=== PATIENT | female | born 1970 | race Caucasian/White ===

== ENCOUNTER 2018-02-15 07:05 | Emergency (ER) | payer MEDICAID ==
[~2018-02-15] VITALS: Ht 152.4 cm; Wt 55.9 kg
[2018-02-15 07:06] VITALS: BP 115/83
[2018-02-15 07:46] LABS: MICROSCOPIC AUTO
[2018-02-15 07:53] LABS: CULTURE INDICATED? YES
[2018-02-15 08:45] LABS: ALBUMIN 4.2 g/dL (3.4-5.0); ANION GAP 6 mmol/L (5-15); CALCIUM 8.8 mg/dL (8.5-10.1); CHLORIDE 107 mmol/L (98-107); CREATININE 0.53 mg/dL (0.55-1.02)
[2018-02-15 09:49] LABS: BASOPHILS # (AUTO) 0.06 x10^3/uL (0-0.1); BASOPHILS % (AUTO) 1 % (0-1); EOSINOPHILS # (AUTO) 0.08 x10^3/uL (0-0.4); EOSINOPHILS % (AUTO) 1 % (1-7); LYMPHOCYTES # (AUTO) 2.11 x10^3/uL (1-3.4); LYMPHOCYTES % (AUTO) 28 % (22-44); MD NO; MEAN CORPUSCULAR HEMOGLOBIN 32.7 pg (27.0-34.8); MEAN CORPUSCULAR HGB CONC 34.5 g/dL (32.4-35.8); MEAN CORPUSCULAR VOLUME 94.7 fL (80-100); MEAN PLATELET VOLUME 8.2 fL (7.4-10.4); MONOCYTES # (AUTO) 0.49 x10^3/uL (0.2-0.8); MONOCYTES % (AUTO) 7 % (2-9); NEUTROPHILS # (AUTO) 4.77 x10^3/uL (1.8-6.8); NEUTROPHILS % (AUTO) 64 % (42-75); PLATELET COUNT 392 x10^3/uL (130-400); RED BLOOD COUNT 4.57 x10^6/uL (3.82-5.3); RED CELL DISTRIBUTION WIDTH 13.6 % (9.6-15.2)
== END 2018-02-15 09:49 | disposition home or self-care (01) ==
LOC: ED 09:46
DX: N10 Acute pyelonephritis (principal); N30.00 Acute cystitis without hematuria; Z90.710 Acquired absence of both cervix and uterus
CPT/HCPCS: 36415; 74018; 76775; 80048; 81001; 82040; 85025; 87077; 87086; 87186; 99285

== ENCOUNTER 2018-07-02 14:13 | Emergency (ER) | payer MEDICAID ==
[~2018-07-02] VITALS: Ht 152.4 cm; Wt 56.0 kg
[2018-07-02] MEDS ORDERED: SODIUM CHLORIDE FLUSH 10ML SYR IVF ONE (14:30)
[2018-07-02 14:40] LABS: BASOPHILS # (AUTO) 0.05 x10^3/uL (0-0.1); BASOPHILS % (AUTO) 1 % (0-1); EOSINOPHILS # (AUTO) 0.16 x10^3/uL (0-0.4); EOSINOPHILS % (AUTO) 2 % (1-7); LYMPHOCYTES # (AUTO) 2.99 x10^3/uL (1-3.4); LYMPHOCYTES % (AUTO) 42 % (22-44); MD NO; MEAN CORPUSCULAR HEMOGLOBIN 31.8 pg (27.0-34.8); MEAN CORPUSCULAR HGB CONC 34.4 g/dL (32.4-35.8); MEAN CORPUSCULAR VOLUME 92.6 fL (80-100); MEAN PLATELET VOLUME 8.3 fL (7.4-10.4); MONOCYTES # (AUTO) 0.48 x10^3/uL (0.2-0.8); MONOCYTES % (AUTO) 7 % (2-9); NEUTROPHILS # (AUTO) 3.45 x10^3/uL (1.8-6.8); NEUTROPHILS % (AUTO) 48 % (42-75); PLATELET COUNT 373 x10^3/uL (130-400); RED BLOOD COUNT 4.91 x10^6/uL (3.82-5.3); RED CELL DISTRIBUTION WIDTH 13.6 % (9.6-15.2)
[2018-07-02 14:48] LABS: ALANINE AMINOTRANSFERASE 34 U/L (12-78); ANION GAP 5 mmol/L (5-15); CALCIUM 8.6 mg/dL (8.5-10.1); CHLORIDE 108 mmol/L (98-107); CREATININE 0.56 mg/dL (0.55-1.02)
[2018-07-02 14:50] LABS: ALKALINE PHOSPHATASE 114 U/L (45-117); BILIRUBIN,TOTAL 0.2 mg/dL (0.2-1.0)
[2018-07-02 15:26] LABS: MICROSCOPIC AUTO
[2018-07-02 15:28] LABS: CULTURE INDICATED? YES
[2018-07-02] MEDS ORDERED: MAALOX/HYOSCYAMINE/LIDOCAINE 45 ML BTL ONE (15:30)
[2018-07-02] MEDS ORDERED: MAALOX/HYOSCYAMINE/LIDOCAINE 45 ML BTL PO ONE (15:30)
[2018-07-02 16:25] VITALS: BP 97/47
== END 2018-07-02 16:27 | disposition home or self-care (01) ==
LOC: ED 16:15
DX: K21.0 Gastro-esophageal reflux disease with esophagitis (principal); K27.3 Acute peptic ulcer, site unspecified, without hemorrhage or perforation; Z90.710 Acquired absence of both cervix and uterus
CPT/HCPCS: 36415; 74022; 80053; 81001; 83690; 85025; 87077; 87086; 87186; 93005; 99285

== ENCOUNTER 2018-10-03 10:04 | Emergency (ER) | payer MEDICAID ==
[~2018-10-03] VITALS: Ht 152.4 cm; Wt 56.0 kg
[2018-10-03 10:11] VITALS: BP 112/70
[2018-10-03 11:06] LABS: RAPID INFLUENZA A Negative (Negative); RAPID INFLUENZA B Negative (Negative)
--- NOTE | 2018-10-03 11:45 | NUR ---
Patient/Caregiver given discharge instructions and they have confirmed that they understand the instructions. Patient ambulatory with steady gait.
== END 2018-10-03 11:46 | disposition home or self-care (01) ==
LOC: ED 11:05
DX: J06.9 Acute upper respiratory infection, unspecified (principal); J41.1 Mucopurulent chronic bronchitis; K21.9 Gastro-esophageal reflux disease without esophagitis; R07.89 Other chest pain; Z87.11 Personal history of peptic ulcer disease
CPT/HCPCS: 71046; 87400; 93005; 99284

== ENCOUNTER 2019-09-16 07:08 | Emergency (ER) | payer MEDICAID ==
[~2019-09-16] VITALS: Ht 152.4 cm; Wt 49.4 kg
[2019-09-16 07:10] VITALS: BP 115/67
--- NOTE | 2019-09-16 07:36 | NUR ---
COUGH, SORE THROAT FOR SEVERAL DAYS. DOUBLE/TRIPLE VISION THIS MORNING WHEN LOOKING AT CLOCK
[2019-09-16 07:57] LABS: RAPID INFLUENZA A Negative (Negative); RAPID INFLUENZA B Negative (Negative)
== END 2019-09-16 08:43 | disposition home or self-care (01) ==
LOC: ED 08:41
DX: J00 Acute nasopharyngitis [common cold] (principal); R51 Headache; B97.89 Other viral agents as the cause of diseases classified elsewhere; K21.9 Gastro-esophageal reflux disease without esophagitis
CPT/HCPCS: 70450; 71046; 87081; 87400; 87880; 99284

== ENCOUNTER 2020-05-03 13:51 | Emergency (ER) | payer MEDICAID ==
[~2020-05-03] VITALS: Ht 152.4 cm; Wt 49.5 kg
--- NOTE | 2020-05-03 14:14 | NUR ---
REPORTS PAIN ON LEFT LEG THAT GOES UP TO BUTTOCK AREA FROM INNER THIGH. PLACED ON VITALS MONITORS, FALL PRECAUTIONS IN PLACE, CALL LIGHT WITHIN REACH.
[2020-05-03] MEDS ORDERED: KETOROLAC 30 MG/1 ML IM ONE (15:00)
[2020-05-03 15:02] LABS: BASOPHILS # (AUTO) 0.03 x10^3/uL (0-0.1); BASOPHILS % (AUTO) 1 % (0-1); EOSINOPHILS # (AUTO) 0.06 x10^3/uL (0-0.4); EOSINOPHILS % (AUTO) 1 % (1-7); LYMPHOCYTES # (AUTO) 2.29 x10^3/uL (1-3.4); LYMPHOCYTES % (AUTO) 47 % (22-44); MD NO; MEAN CORPUSCULAR HEMOGLOBIN 31.6 pg (27.0-34.8); MEAN CORPUSCULAR HGB CONC 33.5 g/dL (32.4-35.8); MEAN CORPUSCULAR VOLUME 94.4 fL (80-100); MEAN PLATELET VOLUME 8.5 fL (7.4-10.4); MONOCYTES # (AUTO) 0.39 x10^3/uL (0.2-0.8); MONOCYTES % (AUTO) 8 % (2-9); NEUTROPHILS # (AUTO) 2.14 x10^3/uL (1.8-6.8); NEUTROPHILS % (AUTO) 44 % (42-75); PLATELET COUNT 245 x10^3/uL (130-400); RED BLOOD COUNT 4.79 x10^6/uL (3.82-5.3); RED CELL DISTRIBUTION WIDTH 13.3 % (9.6-15.2)
[2020-05-03] MEDS ORDERED: KETOROLAC 30 MG/1 ML ONE (15:04)
--- NOTE | 2020-05-03 15:13 | NUR ---
US AT BEDSIDE.
[2020-05-03 15:32] VITALS: BP 124/93
== END 2020-05-03 16:30 | disposition home or self-care (01) ==
LOC: ED 15:53
DX: S76.212A Strain of adductor muscle, fascia and tendon of left thigh, initial encounter (principal); S76.812A Strain of other specified muscles, fascia and tendons at thigh level, left thigh, initial encounter; K21.9 Gastro-esophageal reflux disease without esophagitis; Z90.710 Acquired absence of both cervix and uterus; X58.XXXA Exposure to other specified factors, initial encounter; Y93.89 Activity, other specified; Y92.098 Other place in other non-institutional residence as the place of occurrence of the external cause; Y99.8 Other external cause status
CPT/HCPCS: 36415; 73552; 85025; 93971; 96372; 99285; J1885

== ENCOUNTER 2020-12-08 10:56 | Emergency (ER) | payer MEDICAID ==
[~2020-12-08] VITALS: Ht 152.4 cm; Wt 48.3 kg
--- NOTE | 2020-12-08 11:36 | NUR ---
ROCKY CASTELLON AT BEDSIDE FOR EVALUATION. PT WITH LIGHTHEADED/NAUSEA X 2 DAYS. DENIES VOMITING, LOSS OF CONCIOUSNESS, PT ATTACHED TO ALL MONITORS, VSS, NADN, AWAITING ORDERS.
[2020-12-08 11:42] LABS: BASOPHILS % (AUTO) 1 % (0-1); EOSINOPHILS % (AUTO) 1 % (1-7); LYMPHOCYTES % (AUTO) 36 % (22-44); MEAN CORPUSCULAR HEMOGLOBIN 32.6 pg (27.0-34.8); MEAN CORPUSCULAR HGB CONC 33.9 g/dL (32.4-35.8); MEAN PLATELET VOLUME 8.5 fL (7.4-10.4); MONOCYTES % (AUTO) 5 % (2-9); NEUTROPHILS % (AUTO) 57 % (42-75); PLATELET COUNT 285 x10^3/uL (130-400); RED BLOOD COUNT 4.46 x10^6/uL (3.82-5.3); RED CELL DISTRIBUTION WIDTH 13.5 % (9.6-15.2)
[2020-12-08 11:43] LABS: MD NO
[2020-12-08 11:54] LABS: ALBUMIN 4.2 g/dL (3.4-5.0); ANION GAP 5 mmol/L (5-15); CALCIUM 8.8 mg/dL (8.5-10.1); CHLORIDE 110 mmol/L (98-107); CREATININE 0.48 mg/dL (0.55-1.02)
[2020-12-08 11:59] LABS: TROPONIN I < 0.015 ng/mL (0.000-0.045)
[2020-12-08] MEDS ORDERED: ONDANSETRON 2MG/ML, 2ML IVPush ONE (12:00)
[2020-12-08] MEDS ORDERED: MECLIZINE CHEWABLE 25 MG TAB PO ONE (12:00)
[2020-12-08] MEDS ORDERED: SODIUM CHLORIDE 0.9% 1,000ML IVBOLUS ONE (12:00)
[2020-12-08] MEDS ORDERED: ASPIRIN 81 MG TABLET CHEW PO ONE (12:00)
[2020-12-08] MEDS ORDERED: ASPIRIN 81 MG TABLET CHEW ONE (12:04)
[2020-12-08] MEDS ORDERED: ONDANSETRON 2MG/ML, 2ML ONE (12:04)
[2020-12-08] MEDS ORDERED: MECLIZINE CHEWABLE 25 MG TAB ONE (12:04)
[2020-12-08 12:09] LABS: MICROSCOPIC NOT IND
--- NOTE | 2020-12-08 12:22 | NUR ---
VS UPDATED AND WNL. DR. MONREAL AT BEDSIDE, AND INFORMED PATIENT THAT SHE IS TO BE DISCHARGED AFTER IV FLUIDS.
[2020-12-08] MEDS ORDERED: ASCO-96 PO (12:23)
[2020-12-08] MEDS ORDERED: VITA1TAB19 PO (12:23)
[2020-12-08 13:17] VITALS: BP 106/61
== END 2020-12-08 13:19 | disposition home or self-care (01) ==
LOC: ED 11:31
DX: R42 Dizziness and giddiness (principal); R11.0 Nausea; R53.1 Weakness
CPT/HCPCS: 36415; 71045; 80048; 81003; 82040; 83880; 84484; 85025; 93005; 96361; 96374; 99285; J2405; J7030

== ENCOUNTER 2021-02-11 15:31 | Emergency (ER) | payer MEDICAID ==
[~2021-02-11] VITALS: Ht 152.4 cm; Wt 48.0 kg
[~2021-02-11 15:31] MED LIST: ASCO-96 PO; VITA1TAB19 PO
[2021-02-11 16:17] LABS: MICROSCOPIC AUTO
[2021-02-11 16:25] LABS: BASOPHILS % (AUTO) 1 % (0-1); EOSINOPHILS % (AUTO) 2 % (1-7); LYMPHOCYTES % (AUTO) 42 % (22-44); MEAN CORPUSCULAR HEMOGLOBIN 32.4 pg (27.0-34.8); MEAN CORPUSCULAR HGB CONC 34.2 g/dL (32.4-35.8); MEAN PLATELET VOLUME 8.5 fL (7.4-10.4); MONOCYTES % (AUTO) 7 % (2-9); NEUTROPHILS % (AUTO) 48 % (42-75); PLATELET COUNT 316 x10^3/uL (130-400); RED BLOOD COUNT 4.72 x10^6/uL (3.82-5.3); RED CELL DISTRIBUTION WIDTH 12.9 % (9.6-15.2)
[2021-02-11 16:26] LABS: ALANINE AMINOTRANSFERASE 25 U/L (12-78); ALBUMIN 4.2 g/dL (3.4-5.0); ANION GAP 5 mmol/L (5-15); CALCIUM 9.1 mg/dL (8.5-10.1); CHLORIDE 109 mmol/L (98-107)
[2021-02-11 16:28] LABS: MD NO
[2021-02-11 16:29] LABS: ALKALINE PHOSPHATASE 81 U/L (45-117); BILIRUBIN,TOTAL 0.3 mg/dL (0.2-1.0); CREATININE 0.63 mg/dL (0.55-1.02); TOTAL PROTEIN 7.7 g/dL (6.4-8.2)
--- NOTE | 2021-02-11 16:51 | NUR ---
PT AMBULATED TO ER BED, PT RESTING IN BED, PT A/O X4 WITH UNLABORED EQUAL BREATHS. PT HAS C/O ABD PAIN. PT ON MONITOR WITH PT VSS.
[2021-02-11 19:23] VITALS: BP 103/55
== END 2021-02-11 19:56 | disposition home or self-care (01) ==
LOC: ED 17:54
DX: S30.1XXA Contusion of abdominal wall, initial encounter (principal); K21.9 Gastro-esophageal reflux disease without esophagitis; F17.200 Nicotine dependence, unspecified, uncomplicated; Z87.11 Personal history of peptic ulcer disease; Z90.710 Acquired absence of both cervix and uterus; X58.XXXA Exposure to other specified factors, initial encounter; Y93.89 Activity, other specified; Y92.89 Other specified places as the place of occurrence of the external cause; Y99.8 Other external cause status
CPT/HCPCS: 36415; 74176; 80053; 81001; 85025; 87077; 87086; 87186; 99284